=== PATIENT | male | born 1940 | race Caucasian/White ===

== ENCOUNTER → 2019-08-08 | Outpatient (CLI) | payer OTHER ==
[~2019-08-08] MED LIST: ADULT LOW DOSE81 MG PO; AMBIEN 5 MG TABL5 M1 PO; PLAVIX 75 MG TA75 MG PO; SIMVASTATIN5 MG PO; TAMSULOSIN HCL0.4 MG PO
== END ==
LOC: SJCVCIMAG 09:43
PROVIDERS: ATTEND Internal Medicine Cardiovascular Disease
DX: I10 Essential (primary) hypertension (principal); E78.5 Hyperlipidemia, unspecified

== ENCOUNTER 2019-10-09 15:19 | Inpatient (IN) | payer OTHER ==
[~2019-10-09] VITALS: Ht 188 cm; Wt 85.3 kg
[2019-10-09 15:19] VITALS: BP 114/74
[2019-10-09 15:53] LABS: BE(vivo) -2.9 mmol/L (-2 to +3); HCO3 19.3 mmol/L (22.0-26.0); PCO2 27.4 mmHg (35.0-45.0); PO2 74.8 mmHg (80.0-100.0); pH 7.465 (7.360-7.450)
[2019-10-09 15:55] LABS: BASOPHILS 0.5 % (0.0-2.0); EOSINOPHILS 1.4 % (0.0-3.0); HEMATOCRIT 42.7 % (42.0-52.0); HEMOGLOBIN 14.3 gm/dL (14.0-18.0); LYMPHOCYTES 6.5 % (24.0-44.0); MCH 32.4 pg (26.0-34.0); MCHC 33.5 g/dL (28.0-37.0); MCV 96.9 fL (80.0-100.0); MONOCYTES 6.5 % (1.0-8.0); PLATELET COUNT 219 thou/uL (150-400); POLYS 85.1 % (36.0-66.0); RBC 4.41 mil/uL (4.50-6.00); RDW 13.8 % (10.5-14.5); WBC 11.7 thou/uL (4.0-11.0)
[2019-10-09 16:16] LABS: ANION GAP 14 mmol/L (7-16); BUN 27 mg/dL (7-18); CHLORIDE 102 mmol/L (98-107); CO2 22 mmol/L (21-32); CREATININE 1.6 mg/dL (0.7-1.3); GLUCOSE 195 mg/dL (74-106); POTASSIUM 3.4 mmol/L (3.5-5.1); SODIUM 138 mmol/L (136-145)
[2019-10-09 16:25] LABS: ALBUMIN 2.7 g/dL (3.4-5.0); DIRECT BILIRUBIN 0.4 mg/dL (<0.1-0.2); SGOT 38 U/L (15-37); SGPT 56 U/L (30-65); TOTAL BILIRUBIN 1.8 mg/dL (0.2-1.0); TOTAL PROTEIN 7.4 g/dL (6.4-8.2); TROPONIN-I <0.06 ng/mL (<0.06)
[2019-10-09] MEDS ORDERED: METFORMIN HCL500 M3 PO (18:06)
[2019-10-09] MEDS ORDERED: OMEPRAZOLE 20 M20 M1 PO (18:07)
[2019-10-09] MEDS ORDERED: ASA81BEC PO (18:07)
[2019-10-09] MEDS ORDERED: REQUIP 1 MG TABL1 M1 PO (18:08)
[2019-10-10 06:13] LABS: HEMATOCRIT 36.4 % (42.0-52.0); HEMOGLOBIN 12.7 gm/dL (14.0-18.0); MCH 33.3 pg (26.0-34.0); MCHC 34.8 g/dL (28.0-37.0); MCV 95.5 fL (80.0-100.0); RBC 3.81 mil/uL (4.50-6.00); RDW 13.6 % (10.5-14.5); WBC 10.2 thou/uL (4.0-11.0)
[2019-10-10 06:14] LABS: CALCIUM 8.5 mg/dL (8.5-10.1); CREATININE 1.3 mg/dL (0.7-1.3); MAGNESIUM 1.8 mg/dL (1.8-2.4)
[2019-10-10 06:41] LABS: POTASSIUM 4.9 mmol/L (3.5-5.1)
--- NOTE | 2019-10-10 07:48 | EKG ---
[facility] [place] [address] ELECTROCARDIOGRAM REPORT Name: AUDELIA HENNESSY Room #: 170-16 ADM IN M.R.#: [id number] Admission: 10/09/19 Attend Phys: Humberto Shaffer MD Discharge: Date of : 42 Report #: [id number] THIS REPORT FOR: cc: ROXI - No family physician/PCP ROXI - No family physician/PCP Chad Ashford MD [facility] THIS REPORT FOR: //name// 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 : 1940 Requested By: Brendon Medrano Order Number: [id number] MD: Chad Ashford Measurements Intervals [place] Rate: 105 P: 66 CO: 152 QRS: 45 QRSD: 88 T: 232 QT: 320 QTc: 423 Interpretive Statements Sinus tachycardia Repol abnrm suggests ischemia, diffuse leads Baseline wander in lead(s) V4,V5,V6 Compared to ECG 01/08/2010 19:06:46 ST and T wave abnormality is now present Electronically Signed On 10-10-2019 7:48:08 CDT by Chad Ashford [email or web address] <ELECTRONICALLY SIGNED> By: Chad Ashford MD, FAC 10/10/19 0748 [id number] [id number] Chad Ashford MD, [facility] /EPI
--- NOTE | 2019-10-10 07:49 | EKG ---
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: : 1940 Requested By: Brendon Medrano Order Number: [id number] MD: Chad Ashford Measurements Intervals [place] Rate: 99 P: 58 IN: 162 QRS: 40 QRSD: 86 T: QT: 328 QTc: 421 Interpretive Statements Sinus rhythm Nonspecific ST and T wave abnormality Compared to ECG 10/09/2019 15:33:26 Sinus tachycardia no longer present ST and T wave abnormalities less pronounced Electronically Signed On 10-10-2019 7:49:36 CDT by Chad Ashford [email or web address] <ELECTRONICALLY SIGNED> By: Chad Ashford MD, [facility] 10/10/19 0749 1649 1649 Chad Ashford MD, [facility] /EPI
--- NOTE | 2019-10-10 11:15 | NUR ---
PT RESTING IN BED WITH EYES CLOSED. PROVIDED HYGIENE ITEMS TO PT. SET AT BEDSIDE FOR PT USE
[2019-10-10 12:06] VITALS: BP 127/65
[2019-10-10 12:24] LABS: HEMATOCRIT 37.9 % (42.0-52.0); HEMOGLOBIN 12.5 gm/dL (14.0-18.0); MCH 31.7 pg (26.0-34.0); MCV 96.3 fL (80.0-100.0); RBC 3.94 mil/uL (4.50-6.00); RDW 13.9 % (10.5-14.5); WBC 14.5 thou/uL (4.0-11.0)
[2019-10-10 12:31] LABS: APTT 31.7 Seconds (24.5-32.8); PROTIME 10.7 Seconds (9.3-11.4)
[2019-10-10 16:29] VITALS: BP 127/65
[2019-10-10 16:51] VITALS: BP 127/65
[2019-10-10 17:00] VITALS: BP 114/68
[2019-10-10 17:47] VITALS: BP 114/68
--- NOTE | 2019-10-10 19:19 | NUR ---
PT ADMITTED TO 3W 1800, PT ALERT AND ORIENTED X4, DENIES CHEST PAIN, NAUSEA AND VOMITTING. PT IS ON ROOM AIR, NO SIGNS OF DISTRESS NOTED. PT IS ON HEPARIN DRIP 14.99UNITS/KG. PT ORIENTED TO ROOM. TELEMETRY PLACED ON PT, SINUS RYTHM HR 70'S. PT SIGNED CONSENT S. FALL PROTOCOL EXPLAIN TO PT. NO SKIN ISSUES NOTED. ASSESSMENT COMPLETED. CALL LIGHT AND TABLE WITHIN REACH. BED AT LOWEST LEVEL
[2019-10-10 20:14] VITALS: BP 121/70
--- NOTE | 2019-10-10 21:06 | NUR ---
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 PT WAS DIAGNOSED 2 WEEKS AGO WITH COVID REMAINED SOA AND CAME TO ED. DIAGNOSED WITH PE. ON HEPARIN DRIP, IVF AND ANTIBIOTICS. PTAOX4, STEADY GAIT. PT HAS COUGH LUNGS WITH WHEEZES, REMAINS ON RA. PT VERBALIZED CONCERN NOT BEING ABLE TO SLEEP DUE TO INTERUPTIONS. PT GIVEN PRN FOR SLEEP. BLUNTED AFFECT GOOD EYE CONTACT.
--- NOTE | 2019-10-10 21:54 | NUR ---
PT VERBALIZED CONSENT FOR REMEDISIVIR. DR SIFUENTES TALKED WITH PT EARLIER IN THE DAY.
[2019-10-11 00:06] LABS: HIV ANTIBODY Non Reactive (Non Reactive)
[2019-10-11 05:08] VITALS: BP 120/71
[2019-10-11 07:58] VITALS: BP 133/78
--- NOTE | 2019-10-11 11:41 | NUR ---
PT CARE ASSUMED AT 0700, PT ALER AND ORIENTED X4, DENIES CHEST PAIN, NAUSEA AND VOMITTING. PT IS ON ROOM AIR, DENIES ANY DISTRESS. PT HAS HEPARIN RUNNING 14.99UNITS/KG/ML. PT APTT HAS BEEN THERAPEUTIC. PT DENIES ANY PAIN, DENIES ANY NEEDS AT THE MOMENT. PT GAVE CONSENT FOR CONVALESCENT PLASMA, DR. SIFUENTES PAGED AND AWARE ABOUT PT SIGNING THE CONSENT. PT IS TAKING A NAP CHIARA. CALL [facility] AND TABLE IN REACH. BED AT LOWEST LEVEL, WILL CONTINUE TO MONITOR.
[2019-10-11 15:17] VITALS: BP 125/65
--- NOTE | 2019-10-11 19:26 | NUR ---
[facility] BLOOD BANK CALLED AND SAID THEY NEEDED AN ORDER FOR CONVALUSCENT PLASMA, DR. BEAR WARREN AND RENETTA, WAITING FOR RESPOND. REPORT GIVEN TO MELLY REDDY AND NOTIFY ABOUT NEEDING THE ORDER FROM DR. SIFUENTES.
[2019-10-11 19:31] VITALS: BP 136/67
[2019-10-11 23:50] VITALS: BP 145/78
[2019-10-12 00:52] VITALS: BP 149/82; BP 162/75
[2019-10-12 06:35] VITALS: BP 133/76
--- NOTE | 2019-10-12 06:40 | NUR ---
Pt. slept some during the night. Afebrile. Tolerating room air well. Shortness of breath with exertion.Convalescent plasma given. Cont. on heparin gtt. no signs of bleeding. Up in the recliner chair this am. Making some progress towards care plan goals.
[2019-10-12 08:00] VITALS: BP 139/83
--- NOTE | 2019-10-12 08:48 | NUR ---
LATE NOTE FROM WHEN PATIENT WAS STILL IN EMERGENCY DEPARTMENT. 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 THEY WANTED THIS BUCKET CHUCKER TO PASS ON TO HIM THAT "FATHER RANDY AND THE [employer] ARE THINKING OF YOU AND WILL BE PRAYING FOR YOU". Mavis DALI WAS TYPED IN [place]. i TOOK IT TO THE E.D. AND PLACED IT IN THE CLIP OUTSIDE HIS ROOM. I SPOKE TO HIS NURSE AND ASKED HIM NEXT TIME HE WENT IN THE ROOM TO PLEASE PASS THE NOTE ON TO THE PATIENT.
--- NOTE | 2019-10-12 09:19 | NUR ---
THIS BIOPROCESS DEVELOPMENT ENGINEER FOLLOWED UP WITH THE TELEPHONE CALL ON TuesdayOCTOBER 09, PRIOR TO MY DAY OFF YESTERDAY. I NOTIFIED THE VOODOO THAT NOW HE IS OUT OF THE E. D. AND HE HAS BEEN ADMITTED TO ROOM 352. I EXPLAINED THAT HE CAN NOT HAVE VISITORS THAT IS A "COVID ISOLATION" ROOM. I EXPLAINED HE DOES HAVE A TELEPHONE IN HIS ROOM AND HE CAN BE REACHED AT . I ALSO TOLD THEM THAT WE DO HAVE A BRUSH MAKER HERE AND SUNDAYS FROM 10-09.
--- NOTE | 2019-10-12 09:34 | NUR ---
INITIAL ASSESSMENT: Received consult. PERRY reviewed chart and spoke with nursing and attending physician. Pt was admitted from home due to acute respiratory failure/COVID-19. Pt had tested positive for COVID at [facility] about two weeks ago. Pt is completing course of Remdesivir (last dose 10/13). PERRY spoke with pt via phone. Introduced role of SW. Pt is alert/orientated x 4. Pt reports he lives at home with his . Prior to admission, pt was independent with ADLs. Pt does have a walker at home to use if needed. Pt and spouse live in a ranch-style house. Laundry is in the basement. Pt does not go to the basement. Pt has used HH in the past but unsure of provider. No hx of post-acute placement. Pt's PCP is Dr. Jerod Costa. SW discussed discharge needs: possible HH. Pt is agreeable with HH referral. Options provided. No preference voiced. PERRY confirmed pt's home address and phone number. Faxed referral to [facility] and notified intake. Possible discharge home on Tuesday if medically stable. Contact info for HH placed in pt's discharge summary. Finalized discharge orders/summary will need to be faxed to HH when available. PERRY is following and available to assist as needed with discharge planning. [facility]--
[2019-10-12 09:40] VITALS: BP 139/83
[2019-10-12 15:16] VITALS: BP 122/60
--- NOTE | 2019-10-12 18:09 | NUR ---
PT IS A&OX3, PT'S VS ARE STABLE, PT 'S HEPARIN IV DRIP HAS DISCONTINUE AT 1240PM, PT HAS CHANGED TO PT APIXABAN 5MG PO FOR PE, PT HAD JOSLYN DOSE TODAY, PT DOES NOT HAVE SOB AND S/S OF BLEEDING , PT GETS UP TO BATHROOM WITHOUT ASSIST, PT GETS UP IN CHAIR AT MEAL TIME.
[2019-10-12 20:03] VITALS: BP 135/67
[2019-10-13 04:32] VITALS: BP 151/78
--- NOTE | 2019-10-13 04:38 | NUR ---
Slept better last night in the recliner chair. Room air sat in the low 90's . Shortness of breath with exertion. Up ad sni in room with steady gait. No bleeding from anticoagulant. Making some progress towards care plan goals.
[2019-10-13 05:28] LABS: CALCIUM 8.3 mg/dL (8.5-10.1); CREATININE 1.4 mg/dL (0.7-1.3); POTASSIUM 4.1 mmol/L (3.5-5.1)
[2019-10-13 05:33] LABS: ABSOLUTE NEUTROPHILS 7.7 thou/uL (1.4-8.2); BASOPHILS 0.1 % (0.0-2.0); HEMATOCRIT 34.6 % (42.0-52.0); HEMOGLOBIN 11.8 gm/dL (14.0-18.0); MCH 32.8 pg (26.0-34.0); MCHC 34.2 g/dL (28.0-37.0); MCV 95.9 fL (80.0-100.0); MONOCYTES 5.8 % (1.0-8.0); PLATELET COUNT 194 thou/uL (150-400); POLYS 82.1 % (36.0-66.0); RBC 3.61 mil/uL (4.50-6.00); RDW 13.8 % (10.5-14.5); WBC 9.4 thou/uL (4.0-11.0)
[2019-10-13 09:24] VITALS: BP 143/78
[2019-10-13 16:49] VITALS: BP 141/66
--- NOTE | 2019-10-13 19:28 | NUR ---
ASSUMED PATIENT CARE AT 0700. A/O X4. PROGRESSING TOWARDS POC GOALS.
[2019-10-13 19:50] VITALS: BP 142/65
--- NOTE | 2019-10-14 04:53 | NUR ---
Slept well during the night. Tolerating room air well with no respiratory distress. Afebrile. Up ad sin in room. Voiding per bathroom. Making progress towards discharge goals.
[2019-10-14 05:57] VITALS: BP 145/87
[2019-10-14 08:45] VITALS: BP 140/72
[2019-10-14 08:50] VITALS: BP 140/72
--- NOTE | 2019-10-14 13:52 | NUR ---
PT IS A&OX3, PT'S VS ARE STABLE, PT DOES NOT HAVE SOB AND FEVER, PT GETS UP TO BATH ROOM AND STAY IN CHAIR FOR MEALS, PT WILL DC TO HOME ABOUT 1630PM AFTER FINSHING LAST IV DOSE REMDESIVR ,
[2019-10-14] MEDS ORDERED: ACETAMINOPHEN325 M1 PO (15:09)
[2019-10-14] MEDS ORDERED: ELIQUIS5 MG PO (15:09)
[2019-10-14] MEDS ORDERED: LIPITOR40 MG PO (15:09)
[2019-10-14] MEDS ORDERED: CEFDINIR300 MG PO (15:09)
[2019-10-14] MEDS ORDERED: PROMETHAZINE-D473 M1 PO (15:09)
[2019-10-14] MEDS ORDERED: METOPROLOL SUCC25 M1 PO (15:09)
--- NOTE | 2019-10-14 17:00 | NUR ---
RN HAS RECEIVED ORDER TO DC PT TO HOME, PT FINISHED IV DOSE REMDESIVIR ABOUT 1600, RN HAS GIVING DC TEACHING AND COVID TEACHING TOO, PT HAS 2100 PM 10MG DOSE APIXABAN FROM [facility] , BECAUSE PT HAS DOSE UNTILL TOMORROW, PT'S FAMILY RESIDENT CARE COORDINATOR PT AT 1645PM , PT IS HAPPPY TO GO HOME.
--- NOTE | 2019-10-15 16:07 | NUR ---
SW received call from Avelino at [facility] stating they did not receive pt's discharge orders/summary. Pt was discharged on 10/13 with orders for . SW faxed and confirmed info was received. No additional SW needs identified at this time, but is available to assist should needs arise.
== END 2019-10-14 16:45 | disposition home health service (06) | DRG 871 ==
LOC: ER 15:19 → 3W 16:56 → EROBS 16:56 → 3W 10-10 17:48
PROVIDERS: Emergency Medicine; Internal Medicine Pulmonary Disease; Specialist; ADMIT Internal Medicine; ATTEND Internal Medicine
PROC: XW033E5 Introduction of Remdesivir Anti-infective into Peripheral Vein, Percutaneous Approach, New Technology Group 5 (ICD-10-PCS; principal; 2019-10-10)
PROC: XW033E5 Introduction of Remdesivir Anti-infective into Peripheral Vein, Percutaneous Approach, New Technology Group 5 (ICD-10-PCS; 2019-10-11)
PROC: XW13325 Transfusion of Convalescent Plasma (Nonautologous) into Peripheral Vein, Percutaneous Approach, New Technology Group 5 (ICD-10-PCS; 2019-10-12)
DX: A41.9 Sepsis, unspecified organism (principal); J96.01 Acute respiratory failure with hypoxia; U07.1 COVID-19; I26.99 Other pulmonary embolism without acute cor pulmonale; J12.89 Other viral pneumonia; N17.9 Acute kidney failure, unspecified; E78.00 Pure hypercholesterolemia, unspecified; M35.3 Polymyalgia rheumatica; E11.9 Type 2 diabetes mellitus without complications; K21.9 Gastro-esophageal reflux disease without esophagitis; I25.10 Atherosclerotic heart disease of native coronary artery without angina pectoris; E78.5 Hyperlipidemia, unspecified; I65.23 Occlusion and stenosis of bilateral carotid arteries; N18.9 Chronic kidney disease, unspecified; Z90.49 Acquired absence of other specified parts of digestive tract; Z90.89 Acquired absence of other organs; Z79.899 Other long term (current) drug therapy; Z79.82 Long term (current) use of aspirin; Z79.84 Long term (current) use of oral hypoglycemic drugs
CPT/HCPCS: 10779; 10879

== ENCOUNTER → 2020-05-20 | Outpatient (CLI) | payer OTHER ==
[~2020-05-20] MED LIST changes: +ACETAMINOPHEN325 M1 PO; +ASA81BEC PO; +CEFDINIR300 MG PO; +ELIQUIS5 MG PO; +LIPITOR40 MG PO; +METFORMIN HCL500 M3 PO; +METOPROLOL SUCC25 M1 PO; +OMEPRAZOLE 20 M20 M1 PO; +PROMETHAZINE-D473 M1 PO; +REQUIP 1 MG TABL1 M1 PO
== END ==
LOC: SJCVC 10:58
PROVIDERS: ATTEND Internal Medicine Cardiovascular Disease
DX: I25.10 Atherosclerotic heart disease of native coronary artery without angina pectoris (principal); E11.9 Type 2 diabetes mellitus without complications; E78.00 Pure hypercholesterolemia, unspecified; I10 Essential (primary) hypertension; I65.23 Occlusion and stenosis of bilateral carotid arteries; D68.59 Other primary thrombophilia; Z86.16 Personal history of COVID-19; Z86.711 Personal history of pulmonary embolism; Z85.46 Personal history of malignant neoplasm of prostate; Z86.73 Personal history of transient ischemic attack (TIA), and cerebral infarction without residual deficits; Z82.49 Family history of ischemic heart disease and other diseases of the circulatory system; Z79.899 Other long term (current) drug therapy; Z79.82 Long term (current) use of aspirin; Z88.0 Allergy status to penicillin; Z88.1 Allergy status to other antibiotic agents